=== PATIENT | male | born 1975 | race Hispanic/Latino ===

== ENCOUNTER → 2025-02-09 | Day surgery (SDC) | payer BC, OTHER ==
[~2025-02-09] MED LIST: FENTANYL CITRATE/PF 100MCG/2 ML INJ ONE; LIDOCAINE HCL 2% LOCAL INJ 5 ML SDV VIAL INJ ONE; METOCLOPRAMIDE HCL 10 MG/2ML VIAL ONE; MIDAZOLAM HCL 2 MG/2 ML VIAL ONE; MIDAZOLAM HCL 5 MG/ML VIAL ONE; PROPOFOL IV EMULSION 10 MG/ML 20 ML VIAL ONE; PROPOFOL IV EMULSION 50 ML IV ONE; TADALAFIL10 MG PO; TUMS200 MG PO; VENTOLIN HFA18 GM INH
[2025-02-09] MEDS: LACTATED RINGER'S 1,000 ML ONE (13:10)
[2025-02-09 15:35] VITALS: BP 114/53; PULSE 63; RESP 16; O2SAT 96
== END | disposition home or self-care (01) ==
LOC: OR 11:57
PROVIDERS: ATTEND Internal Medicine Gastroenterology
DX: Z12.11 Encounter for screening for malignant neoplasm of colon (principal); D12.3 Benign neoplasm of transverse colon; D12.4 Benign neoplasm of descending colon; D12.8 Benign neoplasm of rectum; K29.70 Gastritis, unspecified, without bleeding; K31.89 Other diseases of stomach and duodenum; K20.90 Esophagitis, unspecified without bleeding; K21.9 Gastro-esophageal reflux disease without esophagitis; K57.30 Diverticulosis of large intestine without perforation or abscess without bleeding; K58.9 Irritable bowel syndrome, unspecified; K64.8 Other hemorrhoids; K76.0 Fatty (change of) liver, not elsewhere classified; G47.33 Obstructive sleep apnea (adult) (pediatric); E78.5 Hyperlipidemia, unspecified; R05.9 Cough, unspecified; F41.9 Anxiety disorder, unspecified; F32.A Depression, unspecified; Z91.010 Allergy to peanuts; Z91.013 Allergy to seafood; Z01.810 Encounter for preprocedural cardiovascular examination; Z79.51 Long term (current) use of inhaled steroids; Z79.899 Other long term (current) drug therapy; Z68.30 Body mass index [BMI] 30.0-30.9, adult; Z71.3 Dietary counseling and surveillance; Z87.891 Personal history of nicotine dependence
CPT/HCPCS: 43239; 45385; 93005; J2003; J2250; J2470; J2704; J2765; J3010; J7121; 45378